=== PATIENT | female | born 1975 | race Caucasian/White ===

== ENCOUNTER → 2022-09-14 09:43 | Outpatient (CLI) | payer OTHER, SELFPAY ==
--- NOTE | ~2022-09-14 | US_ITS ---
EXAMINATION: US retroperitoneal duplex ltd, US renal BI DATE: 09/14/2022 10:31 INDICATION: hypertension and decreased glomerular filtration rate TECHNIQUE: 1. Multiple grayscale and color Doppler images of the kidneys were obtained. 2. Multiple grayscale and pulsed Doppler images of the aorta and renal arteries were obtained. COMPARISON: None. FINDINGS: Kidneys: The right kidney measures 12.0 x 5.3 x 5.6 cm. The left kidney measures 11.1 x 5.6 x 5.2 cm. The kidn eys demonstrate normal echogenicity. The region of the upper pole the right kidney is poorly visualiz ed but with suggestion of a possible 3.0 x 2.7 x 3.6 cm hypoechoic mass. There is no hydronephrosis i n either kidney. No stones identified. The bladder is normal. Renal arteries/vascular: The aorta peak systolic velocity is 80 cm/s. The right renal artery peak systolic velocity is 189 cm/ s in the proximal segment, 115 cm/s in the mid segment, and 80 cm/s in the distal segment. The left r enal artery peak systolic velocity is 114 cm/s in the proximal segment, 147 cm/s in the mid segment, and 61 cm/s in the distal segment. IMPRESSION: 1. Indeterminate 3.6 similar hypoechoic region along the upper pole of the right kidney which is subo ptimally visualized equivocal for either artifact versus solid mass. Would recommend further evaluati on with MRI or CT, preferably with and without contrast. No hydronephrosis. 2. Elevated peak systolic velocity at the proximal right renal artery, borderline criteria for >50-60 % stenosis. Reviewed, dictated and finalized at location B. OFF SAW SET UP OPERATOR IMPRESSION: 1. Indeterminate 3.6 similar hypoechoic region along the upper pole of the righ t kidney which is suboptimally visualized equivocal for either artifact versus solid mass. Would recommend further evaluation with MRI or CT, preferably with and without contrast. No hydronephrosis. 2. Elevated peak systolic velocity at the proximal right renal artery, borderli ne criteria for >50-60% stenosis.
== END ==
PROVIDERS: PCP Family Medicine; Visit Provider Physician Assistant
DX: R94.4 Abnormal results of kidney function studies (principal)
CPT/HCPCS: 76775; 93976

== ENCOUNTER → 2022-10-10 14:27 | Outpatient (CLI) | payer OTHER, SELFPAY ==
--- NOTE | ~2022-10-10 | MR_ITS ---
EXAMINATION: MR abdomen wo/w con DATE: 10/10/2022 15:26 INDICATION: Abnormal ultrasound of kidneys TECHNIQUE: Magnetic resonance imaging (MRI) of the abdomen was performed without and with 20 mL Multi jamil intravenous contrast. Sequences included coronal T2-weighted SS-FSE, coronal and axial FS 2D-F IESTA, axial STIR FSE, axial T2-weighted SS-FSE, axial T2-weighted FS SS-FSE, axial diffusion-weighte d SE, axial dual-echo T1-weighted FSPGR, and axial and coronal T1-weighted LAVA. Postcontrast axial T 1-weighted LAVA images were obtained in a time course. Postcontrast coronal T1-weighted LAVA images w ere obtained. COMPARISON: Ultrasound dated 09/14/2022 FINDINGS: Heart size is normal. No pericardial or pleural effusion. Diffuse hepatic steatosis. Gallbladder not visualized and there are foci of magnetic field artifact at the gallbladder fossa likely related to c holecystectomy clips. No intra or extrahepatic biliary ductal dilation. Pancreas, spleen and bilatera l adrenal glands are normal. There are bilateral T2 hyperintense nonenhancing renal cysts measuring 1 .3 cm at the lower pole of the left kidney and 1.0 cm the lower pole of the right kidney. No abnormal masses identified at the upper pole of the right kidney and appearance on prior ultrasound likely re lated to the adjacent hepatic flexure of the colon. Normal variant retroaortic left renal vein. Visua lized portion of the bowels are unremarkable. 2.6 cm right adnexal cyst. No pathologically enlarged a bdominal lymphadenopathy. Visualized bone marrow signal is normal throughout. IMPRESSION: 1. A couple simple appearing small nonenhancing bilateral renal cysts. No concerning solid renal mass es with appearance on prior ultrasound likely artifact of the adjacent hepatic flexure of the colon. Reviewed, dictated and finalized at location A. NATION TECHNICIAN IMPRESSION: 1. A couple simple appearing small nonenhancing bilateral renal cysts. No sukhwinder rning solid renal masses with appearance on prior ultrasound likely artifact of the adjacent hepatic flexure of the colon.
== END ==
PROVIDERS: PCP Family Medicine; Visit Provider Physician Assistant
DX: R93.429 Abnormal radiologic findings on diagnostic imaging of unspecified kidney (principal)
CPT/HCPCS: 74183; A9577

== ENCOUNTER → 2023-05-13 07:48 | Outpatient (CLI) | payer OTHER, SELFPAY ==
--- NOTE | ~2023-05-13 | US_ITS ---
EXAMINATION: US retroperitoneal duplex ltd DATE: 05/13/2023 09:23 CDT INDICATION: Hypertension. Right renal artery stenosis. TECHNIQUE: Sonographic imaging of the kidneys was performed with a 3.5 MHz transducer. Retroperitone al duplex sonogram of the renal arteries also obtained. COMPARISON: Ultrasound dated 09/14/2022 FINDINGS: No focal flow abnormalities are seen in the renal arteries on color Doppler. The peak syst olic velocity ranges of the right and left renal arteries and aorta are 148 cm per second, 121 cm per second, and 83 cm per second, respectively. The velocities and renal to aortic ratios are within nor mal limits. IMPRESSION: 1. No Doppler evidence of renal artery stenosis. Reviewed, dictated and finalized at location B.
== END ==
PROVIDERS: PCP Family Medicine
DX: I70.1 Atherosclerosis of renal artery (principal)
CPT/HCPCS: 93976